=== PATIENT | male | born 1965 | race Caucasian/White ===

== ENCOUNTER → 2018-11-13 | Day surgery (SDC) | payer BC ==
[~2018-11-13] MED LIST: CRESTOR20 MG PO; HYOSCYAMINE SULFATE 0.5 MG/ML INJ ONE; LISINOPRIL-HCT1 EACH PO; MIDAZOLAM HCL 2 MG/2 ML VIAL ONE
[2018-11-13 13:20] VITALS: BP 112/86
--- NOTE | 2018-11-13 19:39 | Operative Report ---
DATE OF PROCEDURE: 11/13/2018 PROCEDURE: Colonoscopy and polypectomy. INDICATION FOR COLONOSCOPY: Surveillance colonoscopy, personal history of colon polyps. MEDICATIONS: The patient was on MAC. Please see anesthesiologist's note. PROCEDURE IN DETAIL: With the patient in left lateral decubitus position, the flexible fiberoptic Olympus colonoscope was inserted into the rectum with ease and advanced all the way to the cecum. The scope was then withdrawn slowly and mucosa overlying the cecum appeared to be within normal limits. One polyp was hot biopsied from the ascending colon. Two polyps were hot biopsied from the transverse colon. One polypectomy site was hemoclipped. The descending colon grossly appeared to be within normal limits. One polyp was hot biopsied from the sigmoid colon. The rectum grossly appeared to be within normal limits. The scope was then retroflexed into the distal rectum where small internal hemorrhoids were noted, none of which was actively bleeding. The scope was then straightened out and was subsequently withdrawn. The patient tolerated the procedure well. Of note, the colon was excessively spastic and irritable and suboptimally visualized. IMPRESSION: 1. Ascending colon polyp, hot biopsied. 2. Transverse colon polyps x2, hot biopsied with 1 polypectomy site hemoclipped. 3. Sigmoid colon polyp, hot biopsied. 4. Internal hemorrhoids, none actively bleeding. PLAN: Follow up pathology. Initiate high-fiber, low-fat diet. Initiate high-fiber supplement. The patient might benefit from a followup colonoscopy in 3 to 5 years. Driss Lozano MD [facility] [place] [facility] [place][id number] cc: Paulo Taylor DO
== END | disposition home or self-care (01) ==
LOC: OR 08:29
PROVIDERS: ATTEND Internal Medicine Gastroenterology
DX: Z09 Encounter for follow-up examination after completed treatment for conditions other than malignant neoplasm (principal); K63.5 Polyp of colon; K64.8 Other hemorrhoids; G47.33 Obstructive sleep apnea (adult) (pediatric); I49.1 Atrial premature depolarization; I10 Essential (primary) hypertension; E78.00 Pure hypercholesterolemia, unspecified; Z88.6 Allergy status to analgesic agent; Z01.810 Encounter for preprocedural cardiovascular examination; Z68.27 Body mass index [BMI] 27.0-27.9, adult; Z80.0 Family history of malignant neoplasm of digestive organs
CPT/HCPCS: 45384; 93005; J1980; J2250; 45378